=== PATIENT | male | born 1995 | race Caucasian/White ===

== ENCOUNTER 2021-05-03 21:41 | Emergency (ER) | payer OTHER ==
[~2021-05-03] VITALS: Ht 188 cm; Wt 99.8 kg
[~2021-05-03 21:41] MED LIST: DOXY100 PO; ESCI10 PO; HYDHCL25 PO; IBUP600 PO; OXYACE5T PO; PERM5TC TOP
[2021-05-03] MEDS ORDERED: ONDA4ODT MM (22:25)
== END 2021-05-03 23:06 | disposition home or self-care (01) ==
LOC: ER 21:41
DX: U07.1 COVID-19 (principal); Z88.1 Allergy status to other antibiotic agents
CPT/HCPCS: 99283